=== PATIENT | female | born 1945 | race American Indian/Alaskan Native ===

== ENCOUNTER 2018-05-31 08:19 | Emergency (ER) | payer OTHER ==
[2018-05-31] MEDS ORDERED: MORPHINE IM ONE (08:44)
[2018-05-31] MEDS ORDERED: ZOFRAN IM ONE (08:44)
--- NOTE | 2018-05-31 08:49 | Emergency Department Report ---
ED Fall HPI - General Chief Complaint: Extremity Injury, Lower Stated Complaint: BILATERAL KNEE PAIN/FALL STANDING Time Seen by Provider: 05/31/18 08:38 Source: EMS Mode of arrival: Stretcher - History of Present Illness Initial Comments: Patient is 73 years old female with history of hypertension. Patient brought to the emergency room via EMS for evaluation of a fall that happened yesterday evening. Patient stated that she was pushed by her dog and fell on both knees. Patient is complaining of bilateral knee pain and swelling and left ankle and foot pain. Patient denied any head injury, neck injury, chest injury, abdominal injury or other extremities injury. Patient denied any loss of consciousness, headache, weakness, numbness or tingling sensation. No bowel or bladder incontinence. Patient denied any symptoms prior to the fall. MD Complaint: fall -: Last night Fall From: standing When Fall Occurred: 24 hours [employer] Fall Witnessed: yes, by family Place Fall Occurred: home Loss of Consciousness: none Prolonged Down Time?: no Symptoms Prior to Fall: none Location - Extremities: Left: Knee, Ankle, Foot, Right: Knee Severity: moderate Severity scale (0 -10): 6 Associated Symptoms: denies ED Review of Systems ROS: Stated complaint: BILATERAL KNEE PAIN/FALL STANDING Other details as noted in HPI Comment: All other systems reviewed and negative Constitutional: denies: chills, fever Respiratory: denies: cough, orthopnea, shortness of breath, SOB with exertion Cardiovascular: denies: chest pain, palpitations Gastrointestinal: denies: abdominal pain, nausea, vomiting, diarrhea, constipation, hematemesis, melena, hematochezia Genitourinary: denies: dysuria Musculoskeletal: denies: back pain Neurological: denies: headache, weakness, numbness, paresthesias, confusion ED Past Medical Hx - Past Medical History Previous Medical History?: Yes Hx Hypertension: Yes Hx Diabetes: Yes - Surgical History Past Surgical History?: No - Social History Smoking Status: Current Every Day Smoker Substance Use Type: None ED Physical Exam - General Limitations: Physical Limitation General appearance: alert, in no apparent distress - Head Head exam: Present: atraumatic, normocephalic, normal inspection - Eye Eye exam: Present: normal appearance, PERRL - ENT ENT exam: Present: normal exam, normal orophraynx, mucous membranes moist - Neck Neck exam: Present: normal inspection, full ROM. Absent: tenderness, meningismus, lymphadenopathy, thyromegaly - Respiratory Respiratory exam: Present: normal lung sounds bilaterally - Cardiovascular Cardiovascular Exam: Present: regular rate, normal rhythm, normal heart sounds - GI/Abdominal GI/Abdominal exam: Present: soft, normal bowel sounds. Absent: distended, tenderness, guarding, rebound, rigid, organomegaly, mass, bruit, pulsatile mass - Expanded Lower Extremity Exam Right Hip exam: Present: normal inspection, full ROM. Absent: tenderness, swelling, abrasion Upper Leg exam: Present: normal inspection, full ROM. Absent: tenderness, swelling Knee exam: Present: normal inspection, full ROM, tenderness, swelling. Absent: abrasion, laceration, ecchymosis, deformity, crepidus, dislocation, erythema, effusion Lower Leg exam: Present: normal inspection, full ROM Ankle exam: Present: normal inspection, full ROM. Absent: tenderness, swelling Foot/Toe exam: Present: normal inspection, full ROM. Absent: tenderness, swelling, abrasion, laceration, dislocation Neuro vascular tendon exam: Present: no vascular compromise Left Hip exam: Present: normal inspection, full ROM. Absent: tenderness, swelling, abrasion Upper Leg exam: Present: normal inspection, full ROM. Absent: tenderness, swelling Knee exam: Present: tenderness, swelling. Absent: full ROM, abrasion, lacerati on, ecchymosis, deformity, crepidus, dislocation, erythema, effusion, pain w/ pronation/supination Lower Leg exam: Present: normal inspection, full ROM. Absent: tenderness, s welling, abrasion, deformity Ankle exam: Present: tenderness, swelling. Absent: abrasion, laceration, ecchymosis Foot/Toe exam: Present: tenderness, swelling. Absent: full ROM Neuro vascular tendon exam: Present: no vascular compromise - Back Exam Back exam: Present: normal inspection - Neurological Exam Neurological exam: Present: alert, oriented X3, CN II-XII intact - Skin Skin exam: Present: warm, intact, normal color ED Course Vital Signs 05/31/18 05/31/18 05/31/18 08:30 08:32 08:45 Temperature 99.1 F Pulse Rate 82 80 82 Respiratory 17 20 26 H Rate Blood Pressure 126/71 110/66 O2 Sat by Pulse 98 95 Oximetry 05/31/18 05/31/18 05/31/18 09:00 09:15 09:30 Temperature Pulse Rate 81 79 85 Respiratory 21 21 20 Rate Blood Pressure 124/73 122/69 111/75 O2 Sat by Pulse 96 96 95 Oximetry ED Medical Decision Making - Radiology Data Radiology results: report reviewed X-ray of both knees, left ankle and left foot are all negative for acute finding. - Medical Decision Making Patient is 73 years old female with history of hypertension. Patient brought to the emergency room via EMS for evaluation of a fall that happened yesterday evening. Patient stated that she was pushed by her dog and fell on both knees. Patient is complaining of bilateral knee pain and swelling and left ankle and foot pain. Patient denied any head injury, neck injury, chest injury, abdominal injury or other extremities injury. Patient denied any loss of consciousness, headache, weakness, numbness or tingling sensation. No bowel or bladder incontinence. Patient denied any symptoms prior to the fall. Patient x-ray is reviewed and is negative for acute finding. Patient stated that she is feeling much better. I advised the patient to follow up with her primary care physician in the next 2-3 days and to return to the ER if symptoms not improved. Critical care attestation.: If time is entered above; I have spent that time in minutes in the direct care of this critically ill patient, excluding procedure time. ED Disposition Clinical Impression: Fall, Contusion Disposition: -01 TO HOME OR SELFCARE Is pt being admited?: No Condition: Stable Instructions: Contusion in Adults (ED), Fall Prevention for Older Adults (ED) Referrals: PRIMARY CARE, [Primary Care Provider] - 3-5 Days
--- NOTE | 2018-05-31 09:51 | XRay Report ---
EXAM: XR KNEE BILAT 3V HISTORY: injury TECHNIQUE: 6 views COMPARISON: None available. FINDINGS: RIGHT KNEE: Diffuse osteopenia. There is no acute bony fracture, or joint subluxation or dislocation seen. No focal bone erosion or sclerosis is seen. There is tricompartment osteoarthritis of the knee (especially severe in the medial joint compartment ), marked by joint space narrowings and prominent marginal osteophytosis. No evidence for inflammator y arthritis is seen. There is a suprapatellar soft tissue density reminiscent of a gross joint effusion seen. There is sev ere SFA, popliteal artery, and trifurcation runoff vessel atherosclerosis. No radiodense soft tissue mass or foreign body is seen. LEFT KNEE: Diffuse osteopenia. There is no acute bony fracture, or joint subluxation or dislocation s een. No focal bone erosion or sclerosis is seen. There is tricompartment osteoarthritis of the knee (especially severe in the medial joint compartment ), marked by joint space narrowings and prominent marginal osteophytosis. No evidence for inflammator y arthritis is seen. There is a suprapatellar soft tissue density reminiscent of a gross joint effusion seen. There is sev ere SFA, popliteal artery, and trifurcation runoff vessel atherosclerosis. No radiodense soft tissue mass or foreign body is seen. IMPRESSION: 1. No acute bony fracture, or joint subluxation or dislocation seen. 2. Moderate to severe bilateral tricompartment osteoarthritis, especially the medial joint compartme nts and patellofemoral joints. 3. Large bilateral joint effusions with distention of the suprapatellar bursae. 4. Severe peripheral atherosclerosis. This document is electronically signed by Celia Vogel MD., May 31 2018 09:49:00 AM ET
--- NOTE | 2018-05-31 09:53 | XRay Report ---
EXAM: XR ANKLE 3+V LT HISTORY: injury/FALL TECHNIQUE: 3 views COMPARISON: None available. FINDINGS: There is no acute bony fracture, or joint subluxation or dislocation seen. No evidence for inflammato ry or degenerative arthritis is seen. No focal bone erosion or sclerosis is seen. There is a small, a pproximately 7.8 mm, Achilles calcaneal bone spur in keeping with sequela of enthesopathy. There is peripheral atherosclerosis. Soft tissue swelling is seen around the ankle. No soft tissue em physema, radiodense soft tissue mass or foreign body is seen. IMPRESSION: 1. No acute bony fracture, or joint subluxation or dislocation seen. 2. Soft tissue swelling around the ankle. 3. No soft tissue emphysema, radiodense soft tissue mass or foreign body seen. 4. Consider follow-up evaluation with sectional imaging (CT and/or MRI) if symptoms persist or worse n. This document is electronically signed by Celia Vogel MD., May 31 2018 09:51:19 AM SH[facility]
--- NOTE | 2018-05-31 10:11 | XRay Report ---
EXAM: XR FOOT 3+V LT HISTORY: injury TECHNIQUE: 3 views COMPARISON: None available. FINDINGS: There is diffuse osteopenia. There is no acute bony fracture, or joint subluxation or dislocation see n. No evidence for inflammatory or degenerative arthritis is seen. No focal bone erosion or sclerosis is seen. No plantar or Achilles calcaneal bone spurs seen. No soft tissue emphysema, radiodense soft tissue abnormality or foreign body is seen. IMPRESSION: 1. No acute bony fracture, or joint subluxation or dislocation seen. 2. No soft tissue emphysema, radiodense soft tissue abnormality or foreign body seen. This document is electronically signed by Celia Vogel MD., May 31 2018 10:09:15 AM ET
[2018-05-31 11:12] VITALS: BP 93/54
== END 2018-05-31 10:40 | disposition home or self-care (01) ==
LOC: ED 08:19
DX: S80.02XA Contusion of left knee, initial encounter (principal); S80.01XA Contusion of right knee, initial encounter; S90.02XA Contusion of left ankle, initial encounter; I10 Essential (primary) hypertension; E11.9 Type 2 diabetes mellitus without complications; F17.200 Nicotine dependence, unspecified, uncomplicated; W20.8XXA Other cause of strike by thrown, projected or falling object, initial encounter; Y93.89 Activity, other specified; Y92.89 Other specified places as the place of occurrence of the external cause; Y99.8 Other external cause status
CPT/HCPCS: 73562; 73610; 73630; 96372; 99283; J2270; J2405

== ENCOUNTER 2021-08-04 13:53 | Inpatient (IN) | payer MEDICARE, OTHER ==
[2021-08-04 14:39] LABS: ABG Base Excess -6.1 mmol/L (-2.0-3.0); ABG HCO3 20.4 mmol/L (20.0-26.0); ABG Methemoglobin 0.5 % (0.0-1.5); ABG PCO2 44.7 mm Hg; ABG PH 7.277 pH Units (7.350-7.450); ABG PO2 178.4 mm Hg (80.0-90.0)
--- NOTE | 2021-08-04 15:01 | Emergency Department Report ---
ED General Adult HPI - General Chief complaint: Dyspnea/Respdistress Stated complaint: RESP ARREST Time Seen by Provider: 08/04/21 14:07 Source: EMS Mode of arrival: Stretcher Limitations: Other - History of Present Illness Initial comments: Patient presents with shortness of breath that occurred today. Patient was stating that she had some difficulty breathing and then went unresponsive. History is limited due to acuity of patient's condition. 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 She has a history of atrial fibrillation she does not smoke. - Related Data Previous Rx's Medication Instructions Recorded Last Taken Type Ondansetron [Zofran Odt] 4 mg PO Q8HR PRN #14 tab.rapdis 05/31/18 Unknown Rx traMADoL [Ultram 50 MG tab] 50 mg PO Q4HR PRN #14 tablet 05/31/18 Unknown Rx Allergies Allergy/AdvReac Type Severity Reaction Status Date / Time No Known Allergies Allergy Verified 08/04/21 19:45 ED Review of Systems ROS: Stated complaint: RESP ARREST Other details as noted in HPI Constitutional: denies: chills, fever Eyes: denies: eye pain, eye discharge, vision change ENT: denies: ear pain, throat pain Respiratory: shortness of breath. denies: cough, wheezing Cardiovascular: denies: chest pain, palpitations Endocrine: no symptoms reported Gastrointestinal: denies: abdominal pain, nausea, diarrhea Genitourinary: denies: urgency, dysuria, discharge Musculoskeletal: denies: back pain, joint swelling, arthralgia Skin: denies: rash, lesions Neurological: denies: headache, weakness, paresthesias Psychiatric: denies: anxiety, depression Hematological/Lymphatic: denies: easy bleeding, easy bruising ED Past Medical Hx - Past Medical History Hx Hypertension: Yes Hx Diabetes: Yes - Social History Smoking Status: Former Smoker Substance Use Type: None - Medications Home Medications: Home Medications Medication Instructions Recorded Confirmed Last Taken Type Ondansetron [Zofran Odt] 4 mg PO Q8HR PRN #14 tab.rapdis 05/31/18 Unknown Rx traMADoL [Ultram 50 MG tab] 50 mg PO Q4HR PRN #14 tablet 05/31/18 Unknown Rx ED Physical Exam - General Limitations: Other General appearance: alert, in no apparent distress - Head Head exam: Present: atraumatic, normocephalic - Eye Eye exam: Present: normal appearance - ENT ENT exam: Present: mucous membranes moist - Neck Neck exam: Present: normal inspection - Respiratory Respiratory exam: Present: normal lung sounds bilaterally. Absent: respiratory distress - Cardiovascular Cardiovascular Exam: Present: regular rate, normal rhythm. Absent: systolic murmur, diastolic murmur, rubs, gallop - GI/Abdominal GI/Abdominal exam: Present: soft, normal bowel sounds - Extremities Exam Extremities exam: Present: normal inspection - Back Exam Back exam: Present: normal inspection - Neurological Exam Neurological exam: Present: alert, oriented X3 - Psychiatric Psychiatric exam: Present: normal affect, normal mood - Skin Skin exam: Present: warm, dry, intact, normal color. Absent: rash ED Course Vital Signs 08/04/21 08/04/21 08/04/21 14:05 16:17 18:42 Pulse Rate 99 H 80 Respiratory 38 H 28 H Rate Blood Pressure 122/82 [Left] O2 Sat by Pulse 86 100 100 Oximetry ED Medical Decision Making - Lab Data Result diagrams: 08/04/21 14:35 08/04/21 14:35 Lab Results 08/04/21 08/04/21 08/04/21 Range/Units 14:15 14:35 14:35 WBC 5.0 (4.5-11.0) K/mm3 RBC 4.61 (3.65-5.03) M/mm3 Hgb 10.5 (10.1-14.3) gm/dl Hct 33.9 (30.3-42.9) % MCV 74 L (79-97) fl MCH 23 L (28-32) pg MCHC 31 (30-34) % RDW 15.4 H (13.2-15.2) % Plt Count 180 (140-440) K/mm3 Lymph % (Auto) 16.0 (13.4-35.0) % Sanborn % (Auto) 4.4 (0.0-7.3) % Eos % (Auto) 0.1 (0.0-4.3) % Baso % (Auto) 0.5 (0.0-1.8) % Lymph # (Auto) 0.8 L (1.2-5.4) K/mm3 Sanborn # (Auto) 0.2 (0.0-0.8) K/mm3 Eos # (Auto) 0.0 (0.0-0.4) K/mm3 Baso # (Auto) 0.0 (0.0-0.1) K/mm3 Seg Neutrophils % 79.0 H (40.0-70.0) % Seg Neutrophils # 4.0 (1.8-7.7) K/mm3 ABG pH 7.277 L (7.350-7.450) pH Units ABG pCO2 44.7 mm Hg ABG pO2 178.4 H (80.0-90.0) mm Hg ABG HCO3 20.4 (20.0-26.0) mmol/L ABG O2 Saturation 99.0 (95.0-99.0) % ABG O2 Content 15.2 (0.0-44) ABG Base Excess -6.1 L (-2.0-3.0) mmol/L ABG Hemoglobin 10.9 L (12.0-16.0) gm/dl ABG Carboxyhemoglobin 1.6 (0.0-5.0) % ABG Methemoglobin 0.5 (0.0-1.5) % Oxyhemoglobin 97.0 (95.0-99.0) % FiO2 60 % Sodium 136 L (137-145) mmol/L Potassium 4.3 (3.6-5.0) mmol/L Chloride 99.7 (98-107) mmol/L Carbon Dioxide 18 L (22-30) mmol/L Anion Gap 23 mmol/L BUN 12 (7-17) mg/dL Creatinine 0.7 (0.6-1.2) mg/dL Estimated GFR > 60 ml/min BUN/Creatinine Ratio 17 % Glucose 523 H* (65-100) mg/dL Calcium 9.6 (8.4-10.2) mg/dL Total Bilirubin 0.40 (0.1-1.2) mg/dL AST 225 H (5-40) units/L ALT 110 H (7-56) units/L Alkaline Phosphatase 101 (35-129) units/L Troponin T (0.00-0.029) ng/mL NT-Pro-B Natriuret Pep (0-900) pg/mL Total Protein 6.9 (6.3-8.2) g/dL Albumin 4.1 (3.9-5) g/dL Albumin/Globulin Ratio 1.5 % 08/04/21 Range/Units 14:35 WBC (4.5-11.0) K/mm3 RBC (3.65-5.03) M/mm3 Hgb (10.1-14.3) gm/dl Hct (30.3-42.9) % MCV (79-97) fl MCH (28-32) pg MCHC (30-34) % RDW (13.2-15.2) % Plt Count (140-440) K/mm3 Lymph % (Auto) (13.4-35.0) % Sanborn % (Auto) (0.0-7.3) % Eos % (Auto) (0.0-4.3) % Baso % (Auto) (0.0-1.8) % Lymph # (Auto) (1.2-5.4) K/mm3 Sanborn # (Auto) (0.0-0.8) K/mm3 Eos # (Auto) (0.0-0.4) K/mm3 Baso # (Auto) (0.0-0.1) K/mm3 Seg Neutrophils % (40.0-70.0) % Seg Neutrophils # (1.8-7.7) K/mm3 ABG pH (7.350-7.450) pH Units ABG pCO2 mm Hg ABG pO2 (80.0-90.0) mm Hg ABG HCO3 (20.0-26.0) mmol/L ABG O2 Saturation (95.0-99.0) % ABG O2 Content (0.0-44) ABG Base Excess (-2.0-3.0) mmol/L ABG Hemoglobin (12.0-16.0) gm/dl ABG Carboxyhemoglobin (0.0-5.0) % ABG Methemoglobin (0.0-1.5) % Oxyhemoglobin (95.0-99.0) % FiO2 % Sodium (137-145) mmol/L Potassium (3.6-5.0) mmol/L Chloride (98-107) mmol/L Carbon Dioxide (22-30) mmol/L Anion Gap mmol/L BUN (7-17) mg/dL Creatinine (0.6-1.2) mg/dL Estimated GFR ml/min BUN/Creatinine Ratio % Glucose (65-100) mg/dL Calcium (8.4-10.2) mg/dL Total Bilirubin (0.1-1.2) mg/dL AST (5-40) units/L ALT (7-56) units/L Alkaline Phosphatase (35-129) units/L Troponin T < 0.010 (0.00-0.029) ng/mL NT-Pro-B Natriuret Pep 3670 H (0-900) pg/mL Total Protein (6.3-8.2) g/dL Albumin (3.9-5) g/dL Albumin/Globulin Ratio % - Medical Decision Making Chief medical diagnosis congestive heart failure Differential medical diagnosis pulmonary edema, acute respiratory failure, pneumonia I will give IV Lasix I will place the patient on BiPAP I will get CBC BMP EKG and I will admit the patient to the hospital. Critical Care Time: Yes Critical care time in (mins) excluding proc time.: 120 Critical care attestation.: If time is entered above; I have spent that time in minutes in the direct care of this critically ill patient, excluding procedure time. ED Disposition Clinical Impression: CHF (congestive heart failure), NYHA class III Qualifiers: Congestive heart failure type: combined Congestive heart failure chronicity: unspecified Qualified Code(s): I50.40 - Unspecified combined systolic (congestive) and diastolic (congestive) heart failure Acute respiratory failure Qualifiers: Respiratory failure complication: unspecified whether with hypoxia or hypercapnia Qualified Code(s): J96.00 - Acute respiratory failure, unspecified whether with hypoxia or hypercapnia Disposition: ADMITTED INPATIENT Is pt being admited?: Yes Does the pt Need Aspirin: No Condition: Stable
[2021-08-04 15:06] LABS: Basophils % (Auto) 0.5 % (0.0-1.8); Eosinophils % (Auto) 0.1 % (0.0-4.3); Hematocrit 33.9 % (30.3-42.9); Hemoglobin 10.5 gm/dl (10.1-14.3); Lymphocytes # (Auto) 0.8 K/mm3 (1.2-5.4); Mean Corpuscular HGB Conc 31 % (30-34); Mean Corpuscular Volume 74 fl (79-97); Monocytes # (Auto) 0.2 K/mm3 (0.0-0.8); Monocytes % (Auto) 4.4 % (0.0-7.3); Platelet Count 180 K/mm3 (140-440); Red Blood Count 4.61 M/mm3 (3.65-5.03); Red Cell Distribution Width 15.4 % (13.2-15.2)
[2021-08-04 15:18] LABS: Alanine Aminotransferase 110 units/L (7-56); Albumin 4.1 g/dL (3.9-5); Blood Urea Nitrogen 12 mg/dL (7-17); Calcium 9.6 mg/dL (8.4-10.2); Hemolysis Index 4
[2021-08-04 15:49] LABS: BUN/Creatinine Ratio 17
[2021-08-04] MEDS ORDERED: FUROSEMIDE 40 MG/4 ML INJ IV ONE (17:29)
--- NOTE | 2021-08-04 18:12 | XRay Report ---
CHEST 1 VIEW 08/04/2021 5:52 PM INDICATION / CLINICAL INFORMATION: sob. COMPARISON: None available. FINDINGS: SUPPORT DEVICES: None. HEART / MEDIASTINUM: No significant abnormality. LUNGS / PLEURA: Mild increased pulmonary vascularity with mild interstitial prominence within the hazel gs No pneumothorax. Signer Name: Ramírez Major MD Signed: 08/04/2021 6:07 PM Workstation Name: [id number]
[2021-08-04] MEDS ORDERED: ALBUTEROL 2.5 MG/3 ML NEBU IH PRN (19:37)
[2021-08-04] MEDS ORDERED: DEXTROSE 50% IN WATER (25GM) 50 ML SYRINGE IV PRN (19:37)
[2021-08-04] MEDS ORDERED: ACETAMINOPHEN 325 MG TAB PO PRN (19:37)
[2021-08-04] MEDS ORDERED: ONDANSETRON 4 MG/2 ML INJ IV PRN (19:37)
[2021-08-04] MEDS ORDERED: MORPHINE 2 MG/1 ML INJ IV PRN (19:37)
[2021-08-04] MEDS ORDERED: MORPHINE 4 MG/1 ML INJ IV PRN (19:37)
--- NOTE | 2021-08-04 19:53 | History and Physical Report ---
History of Present Illness Date of examination: 08/04/21 Date of admission: 08/04/21 Chief complaint: Dyspnea Respiratory distress History of present illness: 76 years old female with history of high blood duration, diabetes and A. stephanie was brought to the emergency room because of shortness of breath that occurred today. Patient was stating that she had some difficulty breathing and then went unresponsive. History is limited due to acuity of patient's condition. 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 She has a history of atrial fibrillation she does not smoke. In the emergency room patient BNP is 3670, troponin 0.010. Chest x-ray compatible with CHF and glucose is 523. We are going to admit the patient we will put the patient on CHF pathway, BiPAP and consult cardiology for evaluation Past History Past Medical History: atrial fib, diabetes, hypertension Past Surgical History: No surgical history Social history: smoking Family history: hypertension Medications and Allergies Allergies Allergy/AdvReac Type Severity Reaction Status Date / Time No Known Allergies Allergy Verified 08/04/21 19:45 Home Medications Medication Instructions Recorded Confirmed Last Taken Type Ondansetron [Zofran Odt] 4 mg PO Q8HR PRN #14 tab.rapdis 05/31/18 Unknown Rx traMADoL [Ultram 50 MG tab] 50 mg PO Q4HR PRN #14 tablet 05/31/18 Unknown Rx Active Meds: Active Medications Acetaminophen (Acetaminophen 325 Mg Tab) 650 mg PO Q4H PRN PRN Reason: Pain MILD(1-3)/Fever >100.5/MAS Albuterol (Albuterol 2.5 Mg/3 Ml Nebu) 2.5 mg IH Q3HRT PRN PRN Reason: Shortness Of Breath Albuterol/Ipratropium (Ipratropium/Albuterol Sulfate 3 Ml Ampul.Neb) 1 ampul IH Q6HRT PETERSON Dextrose (Dextrose 50% In Water (25gm) 50 Ml Syringe) 50 ml IV Q30MIN PRN; Protocol PRN Reason: Hypoglycemia Famotidine (Famotidine 20 Mg Tab) 20 mg PO BID PETERSON Furosemide (Furosemide 40 Mg/4 Ml Inj) 40 mg IV BID@0600,1800 PETERSON Heparin Sodium (Porcine) (Heparin 5,000 Unit/1 Ml Vial) 5,000 unit SUB-Q Q12HR PETERSON Insulin Human Lispro (Insulin Lispro 100 Unit/Ml) 0 unit SUB-Q Q6HR PETERSON; Protocol Morphine Sulfate (Morphine 2 Mg/1 Ml Inj) 2 mg IV Q4H PRN PRN Reason: Pain, Moderate (4-6) Morphine Sulfate (Morphine 4 Mg/1 Ml Inj) 4 mg IV Q4H PRN PRN Reason: Pain , Severe (7-10) Ondansetron HCl (Ondansetron 4 Mg/2 Ml Inj) 4 mg IV Q8H PRN PRN Reason: Nausea And Vomiting Sodium Chloride (Sodium Chloride 0.9% 10 Ml Flush Syringe) 10 ml IV BID PETERSON Sodium Chloride (Sodium Chloride 0.9% 10 Ml Flush Syringe) 10 ml IV PRN PRN PRN Reason: LINE FLUSH Review of Systems All systems: negative Cardiovascular: orthopnea, edema, shortness of breath, dyspnea on exertion, paroxysmal nocturnal dyspnea Respiratory: shortness of breath, dyspnea on exertion Exam - Constitutional Vitals: Temp Pulse Resp BP Pulse Ox 80 28 H 122/82 100 08/04/21 16:17 08/04/21 16:17 08/04/21 18:42 08/04/21 18:42 General appearance: Present: no acute distress, well-nourished - EENT Eyes: Present: PERRL ENT: hearing intact, clear oral mucosa - Neck Neck: Present: supple, normal ROM - Respiratory Respiratory effort: normal Respiratory: bilateral: rales - Cardiovascular Heart Sounds: Present: S1 & S2. Absent: rub, click - Extremities Extremities: pulses symmetrical, No edema Peripheral Pulses: within normal limits - Abdominal General gastrointestinal: Present: soft, non-tender, non-distended, normal bowel sounds Female genitourinary: Present: normal - Integumentary Integumentary: Present: clear, warm, dry - Musculoskeletal Musculoskeletal: gait normal, strength equal bilaterally - Psychiatric Psychiatric: appropriate mood/affect, intact judgment & insight - Neurologic Neurologic: CNII-XII intact, moves all extremities HEART Score - HEART Score Troponin: Troponin T < 0.010 ng/mL (0.00-0.029) 08/04/21 14:35 Results - Labs CBC & Chem 7: 08/04/21 14:35 08/04/21 14:35 Labs: Laboratory Last Values WBC 5.0 K/mm3 (4.5-11.0) 08/04/21 14:35 RBC 4.61 M/mm3 (3.65-5.03) 08/04/21 14:35 Hgb 10.5 gm/dl (10.1-14.3) 08/04/21 14:35 Hct 33.9 % (30.3-42.9) 08/04/21 14:35 MCV 74 fl (79-97) L 08/04/21 14:35 MCH 23 pg (28-32) L 08/04/21 14:35 MCHC 31 % (30-34) 08/04/21 14:35 RDW 15.4 % (13.2-15.2) H 08/04/21 14:35 Plt Count 180 K/mm3 (140-440) 08/04/21 14:35 Lymph % (Auto) 16.0 % (13.4-35.0) 08/04/21 14:35 [place] % (Auto) 4.4 % (0.0-7.3) 08/04/21 14:35 Eos % (Auto) 0.1 % (0.0-4.3) 08/04/21 14:35 Baso % (Auto) 0.5 % (0.0-1.8) 08/04/21 14:35 Lymph # (Auto) 0.8 K/mm3 (1.2-5.4) L 08/04/21 14:35 [place] # (Auto) 0.2 K/mm3 (0.0-0.8) 08/04/21 14:35 Eos # (Auto) 0.0 K/mm3 (0.0-0.4) 08/04/21 14:35 Baso # (Auto) 0.0 K/mm3 (0.0-0.1) 08/04/21 14:35 Seg Neutrophils % 79.0 % (40.0-70.0) H 08/04/21 14:35 Seg Neutrophils # 4.0 K/mm3 (1.8-7.7) 08/04/21 14:35 ABG pH 7.277 pH Units (7.350-7.450) L 08/04/21 14:15 ABG pCO2 44.7 mm Hg 08/04/21 14:15 ABG pO2 178.4 mm Hg (80.0-90.0) H 08/04/21 14:15 ABG HCO3 20.4 mmol/L (20.0-26.0) 08/04/21 14:15 ABG O2 Saturation 99.0 % (95.0-99.0) 08/04/21 14:15 ABG O2 Content 15.2 (0.0-44) 08/04/21 14:15 ABG Base Excess -6.1 mmol/L (-2.0-3.0) L 08/04/21 14:15 ABG Hemoglobin 10.9 gm/dl (12.0-16.0) L 08/04/21 14:15 ABG Carboxyhemoglobin 1.6 % (0.0-5.0) 08/04/21 14:15 ABG Methemoglobin 0.5 % (0.0-1.5) 08/04/21 14:15 Oxyhemoglobin 97.0 % (95.0-99.0) 08/04/21 14:15 FiO2 60 % 08/04/21 14:15 Sodium 136 mmol/L (137-145) L 08/04/21 14:35 Potassium 4.3 mmol/L (3.6-5.0) 08/04/21 14:35 Chloride 99.7 mmol/L (98-107) 08/04/21 14:35 Carbon Dioxide 18 mmol/L (22-30) L 08/04/21 14:35 Anion Gap 23 mmol/L 08/04/21 14:35 BUN 12 mg/dL (7-17) 08/04/21 14:35 Creatinine 0.7 mg/dL (0.6-1.2) 08/04/21 14:35 Estimated GFR > 60 ml/min 08/04/21 14:35 BUN/Creatinine Ratio 17 % 08/04/21 14:35 Glucose 523 mg/dL (65-100) H* 08/04/21 14:35 Calcium 9.6 mg/dL (8.4-10.2) 08/04/21 14:35 Total Bilirubin 0.40 mg/dL (0.1-1.2) 08/04/21 14:35 AST 225 units/L (5-40) H 08/04/21 14:35 ALT 110 units/L (7-56) H 08/04/21 14:35 Alkaline Phosphatase 101 units/L (35-129) 08/04/21 14:35 Troponin T < 0.010 ng/mL (0.00-0.029) 08/04/21 14:35 NT-Pro-B Natriuret Pep 3670 pg/mL (0-900) H 08/04/21 14:35 Total Protein 6.9 g/dL (6.3-8.2) 08/04/21 14:35 Albumin 4.1 g/dL (3.9-5) 08/04/21 14:35 Albumin/Globulin Ratio 1.5 % 08/04/21 14:35 - Imaging and Cardiology Chest x-ray: report reviewed Assessment and Plan VTE prophylaxis?: Chemical Plan of care discussed with patient/family: Yes - Patient Problems (1) Acute exacerbation of CHF (congestive heart failure) Current Visit: Yes Status: Acute Plan to address problem: Admit the patient to the medical telemetry. Patient is on BiPAP. Lasix 40 mg IV every 12 hours. We will do the serial cardiac enzymes. Echocardiogram, fluid restriction. Maintain input output. Cardiology evaluation (2) Diabetes Current Visit: Yes Status: Acute Plan to address problem: Accu-Chek every 6 hours with Humalog high-dose coverage as. Diabetic education (3) Hypertension Current Visit: Yes Status: Acute Plan to address problem: Hydralazine 10 mg IV every 6 hours as needed. We will continue the home medication (4) A-fib Current Visit: Yes Status: Acute Plan to address problem: Stable. We will continue the home medication. Echocardiogram. Cardiology evaluation (5) Tobacco abuse Current Visit: Yes Status: Acute Plan to address problem: Patient is a former tobacco user. We counseled regarding quitting smoking (6) DVT prophylaxis Current Visit: Yes Status: Acute Plan to address problem: Heparin 5000 units subcu every 12 hours for DVT prophylaxis. Pepcid 20 mg p.o. twice daily for GI prophylaxis. Patient is a full code
[2021-08-04] MEDS ORDERED: hydrALAZINE 20 MG/1 ML INJ IV PRN (19:54)
[2021-08-04] MEDS: IPRATROPIUM/ALBUTEROL SULFATE 3 ML AMPUL.NEB IH SCH (21:26)
[2021-08-04] MEDS: HEPARIN 5,000 UNIT/1 ML VIAL SUB-Q SCH (21:30)
[2021-08-04] MEDS: FAMOTIDINE 20 MG TAB PO SCH (21:30)
[2021-08-05] MEDS: IPRATROPIUM/ALBUTEROL SULFATE 3 ML AMPUL.NEB IH SCH ×4 (02:18→21:12)
[2021-08-05] MEDS: INSULIN LISPRO 100 UNIT/ML SUB-Q SCH ×4 (04:34→22:03)
[2021-08-05] MEDS: FUROSEMIDE 40 MG/4 ML INJ IV SCH ×2 (05:41→17:56)
[2021-08-05 06:21] LABS: Basophils # (Auto) 0.1 K/mm3 (0.0-0.1); Basophils % (Auto) 0.8 % (0.0-1.8); Eosinophils # (Auto) 0.1 K/mm3 (0.0-0.4); Eosinophils % (Auto) 1.3 % (0.0-4.3); Hematocrit 32.1 % (30.3-42.9); Lymphocytes % (Auto) 45.5 % (13.4-35.0); Mean Corpuscular HGB Conc 31 % (30-34); Mean Corpuscular Volume 72 fl (79-97); Monocytes # (Auto) 0.5 K/mm3 (0.0-0.8); Monocytes % (Auto) 8.2 % (0.0-7.3); Platelet Count 181 K/mm3 (140-440); Red Blood Count 4.44 M/mm3 (3.65-5.03)
[2021-08-05 07:05] LABS: Blood Urea Nitrogen 14 mg/dL (7-17); Calcium 9.6 mg/dL (8.4-10.2); Hemolysis Index 1
[2021-08-05 07:08] LABS: BUN/Creatinine Ratio 20
--- NOTE | 2021-08-05 09:23 | Progress Note ---
Assessment and Plan Assessment and plan: VTE prophylaxis?: Chemical Plan of care discussed with patient/family: Yes - Patient Problems --Acute hypoxic respiratory failure; present on admission Requiring BiPAP, wean as tolerated Oxygen titrate O2 sats more than 90% Treat underlying congestive heart failure diuretics Nebulizers if needed - Acute exacerbation of systolic CHF (congestive heart failure) Admit the patient to the medical telemetry. Patient is on BiPAP. Lasix 40 mg IV every 12 hours. We will do the serial cardiac enzymes. Echocardiogram, fluid restriction. Maintain input output. Cardiology evaluation LVEF; 40 to 45% -- Diabetes melitis/uncontrolled Accu-Chek every 6 hours with Humalog high-dose coverage as. Sliding scale coverage, glipizide added Closely monitor,Diabetic education -- Hypertension Hydralazine 10 mg IV every 6 hours as needed. We will continue the home medication --Paroxysmal A-fib rate controlled Stable. We will continue the home medication. Echocardiogram. Cardiology evaluation On beta-blockers and chronic anticoagulant Eliquis Cardiology following -- Tobacco abuse Patient is a former tobacco user. We counseled regarding quitting smoking --Obesity; BMI 35.6; Diet modification, lifestyle changes, exercise as tolerated And weight reduction when medically stable --Full CODE STATUS --DVT prophylaxis Heparin 5000 units subcu every 12 hours for DVT prophylaxis. Pepcid 20 mg p.o. twice daily for GI prophylaxis. Patient is a full code Closely monitor the patient and adjust management as needed Cardiology consult and recommendations noted and appreciated Discharge planning per case management when patient is stable History Interval history: I have seen and examined the patient at the bedside Patient's chart and medications reviewed Patient was admitted with acute hypoxic respiratory failure requiring BiPAP Patient's feels slightly better Patient is morbidly obese Vital signs noted Hospitalist Physical - Constitutional Vitals: Temp Pulse Resp BP Pulse Ox 98.9 F 76 16 128/57 98 08/05/21 05:42 08/05/21 08:57 08/05/21 08:57 08/05/21 05:42 08/05/21 08:58 General appearance: Present: no acute distress, well-nourished, obese (Morbidly obese) - EENT Eyes: Present: PERRL, EOM intact - Neck Neck: Present: supple, normal ROM - Respiratory Respiratory effort: normal Respiratory: bilateral: diminished, negative: rales, rhonchi, wheezing - Cardiovascular Rhythm: regular Heart Sounds: Present: S1 & S2 - Extremities Extremities: no ischemia, No edema - Abdominal General gastrointestinal: soft, non-tender, non-distended, normal bowel sounds - Integumentary Integumentary: Present: clear, warm - Psychiatric Psychiatric: appropriate mood/affect, cooperative - Neurologic Neurologic: moves all extremities HEART Score - HEART Score Troponin: Troponin T < 0.010 ng/mL (0.00-0.029) 08/04/21 14:35 Results - Labs CBC & Chem 7: 08/05/21 16:38 08/05/21 16:38 Labs: Laboratory Last Values WBC 6.6 K/mm3 (4.5-11.0) 08/05/21 05:35 RBC 4.44 M/mm3 (3.65-5.03) 08/05/21 05:35 Hgb 10.0 gm/dl (10.1-14.3) L 08/05/21 05:35 Hct 32.1 % (30.3-42.9) 08/05/21 05:35 MCV 72 fl (79-97) L 08/05/21 05:35 MCH 23 pg (28-32) L 08/05/21 05:35 MCHC 31 % (30-34) 08/05/21 05:35 RDW 15.0 % (13.2-15.2) 08/05/21 05:35 Plt Count 181 K/mm3 (140-440) 08/05/21 05:35 Lymph % (Auto) 45.5 % (13.4-35.0) H 08/05/21 05:35 [place] % (Auto) 8.2 % (0.0-7.3) H 08/05/21 05:35 Eos % (Auto) 1.3 % (0.0-4.3) 08/05/21 05:35 Baso % (Auto) 0.8 % (0.0-1.8) 08/05/21 05:35 Lymph # (Auto) 3.0 K/mm3 (1.2-5.4) 08/05/21 05:35 [place] # (Auto) 0.5 K/mm3 (0.0-0.8) 08/05/21 05:35 Eos # (Auto) 0.1 K/mm3 (0.0-0.4) 08/05/21 05:35 Baso # (Auto) 0.1 K/mm3 (0.0-0.1) 08/05/21 05:35 Seg Neutrophils % 44.2 % (40.0-70.0) 08/05/21 05:35 Seg Neutrophils # 2.9 K/mm3 (1.8-7.7) 08/05/21 05:35 ABG pH 7.277 pH Units (7.350-7.450) L 08/04/21 14:15 ABG pCO2 44.7 mm Hg 08/04/21 14:15 ABG pO2 178.4 mm Hg (80.0-90.0) H 08/04/21 14:15 ABG HCO3 20.4 mmol/L (20.0-26.0) 08/04/21 14:15 ABG O2 Saturation 99.0 % (95.0-99.0) 08/04/21 14:15 ABG O2 Content 15.2 (0.0-44) 08/04/21 14:15 ABG Base Excess -6.1 mmol/L (-2.0-3.0) L 08/04/21 14:15 ABG Hemoglobin 10.9 gm/dl (12.0-16.0) L 08/04/21 14:15 ABG Carboxyhemoglobin 1.6 % (0.0-5.0) 08/04/21 14:15 ABG Methemoglobin 0.5 % (0.0-1.5) 08/04/21 14:15 Oxyhemoglobin 97.0 % (95.0-99.0) 08/04/21 14:15 FiO2 60 % 08/04/21 14:15 Sodium 140 mmol/L (137-145) 08/05/21 05:35 Potassium 3.9 mmol/L (3.6-5.0) 08/05/21 05:35 Chloride 100.1 mmol/L (98-107) 08/05/21 05:35 Carbon Dioxide 22 mmol/L (22-30) 08/05/21 05:35 Anion Gap 22 mmol/L 08/05/21 05:35 BUN 14 mg/dL (7-17) 08/05/21 05:35 Creatinine 0.7 mg/dL (0.6-1.2) 08/05/21 05:35 Estimated GFR > 60 ml/min 08/05/21 05:35 BUN/Creatinine Ratio 20 % 08/05/21 05:35 Glucose 411 mg/dL (65-100) H 08/05/21 05:35 POC Glucose 368 mg/dL (70-105) H 08/05/21 05:24 Calcium 9.6 mg/dL (8.4-10.2) 08/05/21 05:35 Total Bilirubin 0.40 mg/dL (0.1-1.2) 08/04/21 14:35 AST 225 units/L (5-40) H 08/04/21 14:35 ALT 110 units/L (7-56) H 08/04/21 14:35 Alkaline Phosphatase 101 units/L (35-129) 08/04/21 14:35 Troponin T < 0.010 ng/mL (0.00-0.029) 08/04/21 14:35 NT-Pro-B Natriuret Pep 3670 pg/mL (0-900) H 08/04/21 14:35 Total Protein 6.9 g/dL (6.3-8.2) 08/04/21 14:35 Albumin 4.1 g/dL (3.9-5) 08/04/21 14:35 Albumin/Globulin Ratio 1.5 % 08/04/21 14:35 Steward/IV: Voiding Method Toilet Active Medications - Current Medications Current Medications: Generic Name Dose Route Start Last Admin Trade Name Freq PRN Reason Stop Dose Admin Acetaminophen 650 mg 08/04/21 19:37 Acetaminophen 325 Mg Tab PO Q4H PRN Pain MILD(1-3)/Fever >100.5/MAS Albuterol 2.5 mg 08/04/21 19:37 Albuterol 2.5 Mg/3 Ml Nebu IH Q3HRT PRN Shortness Of Breath Albuterol/Ipratropium 1 ampul 08/04/21 20:00 08/05/21 08:56 Ipratropium/Albuterol Sulfate 3 Ml Ampul.Neb IH 1 ampul Q6HRT PETERSON Administration Dextrose 50 ml 08/04/21 19:37 Dextrose 50% In Water (25gm) 50 Ml Syringe IV Q30MIN PRN Hypoglycemia Protocol Famotidine 20 mg 08/04/21 22:00 08/04/21 21:30 Famotidine 20 Mg Tab PO 20 mg BID PETERSON Administration Furosemide 40 mg 08/05/21 06:00 08/05/21 05:41 Furosemide 40 Mg/4 Ml Inj IV 40 mg BID@0600,1800 PETERSON Administration Glipizide 10 mg 08/06/21 08:00 Glipizide Xl 10 Mg Tab PO QDDIAB PETERSON Glipizide 10 mg 08/05/21 09:20 Glipizide Xl 10 Mg Tab PO 08/05/21 09:21 ONCE ONE Heparin Sodium (Porcine) 5,000 unit 08/04/21 22:00 08/04/21 21:30 Heparin 5,000 Unit/1 Ml Vial SUB-Q 5,000 unit Q12HR PETERSON Administration Hydralazine HCl 10 mg 08/04/21 19:54 Hydralazine 20 Mg/1 Ml Inj IV Q6H PRN Blood Pressure Insulin Human Lispro 0 unit 08/05/21 00:00 08/05/21 05:32 Insulin Lispro 100 Unit/Ml SUB-Q 10 unit Q6HR PETERSON Administration Protocol Morphine Sulfate 2 mg 08/04/21 19:37 Morphine 2 Mg/1 Ml Inj IV Q4H PRN Pain, Moderate (4-6) Morphine Sulfate 4 mg 08/04/21 19:37 Morphine 4 Mg/1 Ml Inj IV Q4H PRN Pain , Severe (7-10) Ondansetron HCl 4 mg 08/04/21 19:37 Ondansetron 4 Mg/2 Ml Inj IV Q8H PRN Nausea And Vomiting Sodium Chloride 10 ml 08/04/21 22:00 08/04/21 21:30 Sodium Chloride 0.9% 10 Ml Flush Syringe IV 10 ml BID PETERSON Administration Sodium Chloride 10 ml 08/04/21 19:37 Sodium Chloride 0.9% 10 Ml Flush Syringe IV PRN PRN LINE FLUSH
[2021-08-05] MEDS: FAMOTIDINE 20 MG TAB PO SCH ×2 (10:13→21:58)
[2021-08-05] MEDS: HEPARIN 5,000 UNIT/1 ML VIAL SUB-Q SCH (10:13)
--- NOTE | 2021-08-05 10:50 | Electrocardiograph Report ---
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
--- NOTE | 2021-08-05 15:22 | Consultation ---
History of Present Illness Consult date: 08/05/21 Requesting physician: FAN CURRIE Consult reason: congestive heart failure History of present illness: The patient has a history of paroxysmal atrial fibrillation that was initially diagnosed after presenting to [facility] on 07/03/21. She was also treated for HF during that hospitalization. She claims that for the past few days, she has been experiencing progressively worsening shortness of breath. She claims that she u sed her COPD inhaler without improvement. On the day of presentation, the patient reportedly developed shortness of breath and subsequently lost consciousness. She does not recall the events other than arousing in the ambulance. According to the EMS, she was hypoxic upon initial contact. She denies chest pain, palpitations, or dizziness. CXR showed pulmonary vascular congestion. On telemetry, she has been demonstrating intermittent sinus rhythm with paroxysms of AF with RVR. She claims that her [employer] consultant, Dr. Yovany Shook performed a stress test on her last Friday. Result is pending. Echocardiogram of 07/04/21 revealed an ejection fraction of 40 45% with inferior and inferolateral WMA. Past History Past Medical History: atrial fib (PAF diagnosed 07/03/21.), arthritis, COPD, diabetes, heart failure, hypertension, other (JOANNE - she does not use CPAP; breast cancer, CVA.) Past Surgical History: No surgical history, hysterectomy, mastectomy (right lumpectomy), Other (ovarian cystectomy, left knee surgery) Social history: smoking (she's a former smoker) Family history: no significant family history Medications and Allergies Allergies Allergy/AdvReac Type Severity Reaction Status Date / Time No Known Allergies Allergy Verified 08/04/21 19:45 Home Medications Medication Instructions Recorded Confirmed Last Taken Type Cetirizine HCl [Zyrtec 10mg tab] 10 mg PO DAILY 08/05/21 08/05/21 08/03/21 History Meloxicam [Mobic] 15 mg PO QDAY 08/05/21 08/05/21 08/03/21 History Metformin HCl [metFORMIN] 1,000 mg PO BID 08/05/21 08/05/21 08/03/21 History Metoprolol Succinate [Kapspargo 25 mg PO DAILY 08/05/21 08/05/21 08/03/21 History Sprinkle] Rivaroxaban [Xarelto] 20 mg PO QDAY 08/05/21 08/05/21 08/03/21 History Rosuvastatin Calcium 10 mg PO DAILY 08/05/21 08/05/21 08/03/21 History amLODIPine [Norvasc] 10 mg PO DAILY 08/05/21 08/05/21 08/03/21 History glipiZIDE [Glucotrol] 10 mg PO QDAY 08/05/21 08/05/21 08/03/21 History Active Meds: Active Medications Acetaminophen (Acetaminophen 325 Mg Tab) 650 mg PO Q4H PRN PRN Reason: Pain MILD(1-3)/Fever >100.5/MAS Albuterol (Albuterol 2.5 Mg/3 Ml Nebu) 2.5 mg IH Q3HRT PRN PRN Reason: Shortness Of Breath Albuterol/Ipratropium (Ipratropium/Albuterol Sulfate 3 Ml Ampul.Neb) 1 ampul IH Q6HRT [facility] Last Admin: 08/05/21 14:50 Dose: 1 ampul Dextrose (Dextrose 50% In Water (25gm) 50 Ml Syringe) 50 ml IV Q30MIN PRN; Protocol PRN Reason: Hypoglycemia Famotidine (Famotidine 20 Mg Tab) 20 mg PO BID [facility] Last Admin: 08/05/21 10:13 Dose: 20 mg Furosemide (Furosemide 40 Mg/4 Ml Inj) 40 mg IV BID@0600,1800 [facility] Last Admin: 08/05/21 05:41 Dose: 40 mg Glipizide (Glipizide Xl 10 Mg Tab) 10 mg PO QDDIAB [facility] Heparin Sodium (Porcine) (Heparin 5,000 Unit/1 Ml Vial) 5,000 unit SUB-Q Q12HR [facility] Last Admin: 08/05/21 10:13 Dose: 5,000 unit Hydralazine HCl (Hydralazine 20 Mg/1 Ml Inj) 10 mg IV Q6H PRN PRN Reason: Blood Pressure Insulin Human Lispro (Insulin Lispro 100 Unit/Ml) 0 unit SUB-Q Q6HR [facility]; Protocol Last Admin: 08/05/21 05:32 Dose: 10 unit Morphine Sulfate (Morphine 2 Mg/1 Ml Inj) 2 mg IV Q4H PRN PRN Reason: Pain, Moderate (4-6) Morphine Sulfate (Morphine 4 Mg/1 Ml Inj) 4 mg IV Q4H PRN PRN Reason: Pain , Severe (7-10) Ondansetron HCl (Ondansetron 4 Mg/2 Ml Inj) 4 mg IV Q8H PRN PRN Reason: Nausea And Vomiting Sodium Chloride (Sodium Chloride 0.9% 10 Ml Flush Syringe) 10 ml IV BID [facility] Last Admin: 08/05/21 10:13 Dose: 10 ml Sodium Chloride (Sodium Chloride 0.9% 10 Ml Flush Syringe) 10 ml IV PRN PRN PRN Reason: LINE FLUSH Review of Systems Constitutional: no fever, no chills Ears, nose, mouth and throat: no ear pain, no ear discharge, no hoarseness Cardiovascular: orthopnea, syncope, shortness of breath, dyspnea on exertion, no chest pain, no leg edema Respiratory: shortness of breath, no cough, no hemoptysis Gastrointestinal: no abdominal pain, no nausea, no vomiting, no diarrhea, no constipation Genitourinary Female: no dysuria, no urinary frequency Rectal: no pain, no bleeding Musculoskeletal: no neck stiffness, no neck pain, no myalgias Integumentary: no rash, no pruritis Neurological: no weakness, no parathesias, no headaches Endocrine: no cold intolerance, no heat intolerance Hematologic/Lymphatic: no easy bruising, no easy bleeding Allergic/Immunologic: no urticaria Physical Examination Vital Signs Last Vital Signs Temp 98.9 F 08/05/21 05:42 Pulse 124 H 08/05/21 14:50 Resp 18 08/05/21 14:50 BP 128/57 08/05/21 05:42 Pulse Ox 98 08/05/21 08:58 General appearance: no acute distress HEENT: Positive: EOMI, Normocephaly, Mucus Membranes Moist Neck: Positive: neck supple, trachea midline, JVD/HJR Cardiac: Positive: Reg Rate and Rhythm, S1/S2 Lungs: Positive: clear to auscultation Neuro: Positive: Grossly Intact Abdomen: Positive: Soft, Active Bowel Sounds. Negative: Tender Musculoskeletal: Normal Range of Motion Extremities: Present: normal. Absent: edema Results 08/05/21 05:35 08/05/21 05:35 Cardiac Enzymes 08/04/21 Range/Units 14:35 AST 225 H (5-40) units/L CBC 08/05/21 Range/Units 05:35 WBC 6.6 (4.5-11.0) K/mm3 RBC 4.44 (3.65-5.03) M/mm3 Hgb 10.0 L (10.1-14.3) gm/dl Hct 32.1 (30.3-42.9) % Plt Count 181 (140-440) K/mm3 Lymph # (Auto) 3.0 (1.2-5.4) K/mm3 [place] # (Auto) 0.5 (0.0-0.8) K/mm3 Eos # (Auto) 0.1 (0.0-0.4) K/mm3 Baso # (Auto) 0.1 (0.0-0.1) K/mm3 Comprehensive Metabolic Panel 08/04/21 08/05/21 Range/Units 14:35 05:35 Sodium 136 L 140 (137-145) mmol/L Potassium 4.3 3.9 (3.6-5.0) mmol/L Chloride 99.7 100.1 (98-107) mmol/L Carbon Dioxide 18 L 22 (22-30) mmol/L BUN 12 14 (7-17) mg/dL Creatinine 0.7 0.7 (0.6-1.2) mg/dL Glucose 523 H* 411 H (65-100) mg/dL Calcium 9.6 9.6 (8.4-10.2) mg/dL AST 225 H (5-40) units/L ALT 110 H (7-56) units/L Alkaline Phosphatase 101 (35-129) units/L Total Protein 6.9 (6.3-8.2) g/dL Albumin 4.1 (3.9-5) g/dL - Imaging and Cardiology EKG: image reviewed EKG interpretations - Telemetry EKG Rhythm: Sinus Rhythm - EKG Sinus rhythms and dysrhythmias: sinus rhythm Supraventricular dysrhythmia: atrial premature complexe Repolarization changes or abnormalities: ST or T wave suggestive of ischemia Assessment and Plan Agree with current diuretic therapy. Initiate beta santi for control of AF. - Patient Problems (1) Acute HFrEF (heart failure with reduced ejection fraction) Current Visit: Yes Status: Acute (2) Paroxysmal atrial fibrillation with RVR Current Visit: Yes Status: Acute (3) COPD (chronic obstructive pulmonary disease) Current Visit: Yes Status: Chronic (4) JOANNE (obstructive sleep apnea) Current Visit: Yes Status: Chronic (5) Hypertension Current Visit: Yes Status: Chronic Qualifiers: Hypertension type: primary hypertension Qualified Code(s): I10 - Essential (primary) hypertension (6) Diabetes mellitus Current Visit: Yes Status: Chronic
[2021-08-05 16:57] LABS: Hematocrit 33.1 % (30.3-42.9); Hemoglobin 10.2 gm/dl (10.1-14.3); Mean Corpuscular HGB Conc 31 % (30-34); Mean Corpuscular Volume 72 fl (79-97); Platelet Count 184 K/mm3 (140-440); Red Blood Count 4.56 M/mm3 (3.65-5.03); Red Cell Distribution Width 14.9 % (13.2-15.2)
[2021-08-05 17:12] LABS: INR 0.95 (0.87-1.13)
[2021-08-05 17:13] LABS: Partial Thromboplastin Time 35.3 Sec. (24.2-36.6)
[2021-08-05] MEDS: METOPROLOL SUCCINATE XL 25 MG TAB PO SCH ×2 (17:38→22:00)
--- NOTE | 2021-08-05 18:37 | Progress Note ---
Assessment and Plan Assessment and plan: VTE prophylaxis?: Chemical Plan of care discussed with patient/family: Yes - Patient Problems --Acute hypoxic respiratory failure; present on admission Requiring BiPAP, wean as tolerated Oxygen titrate O2 sats more than 90% Treat underlying congestive heart failure diuretics Nebulizers if needed - Acute exacerbation of systolic CHF (congestive heart failure) Admit the patient to the medical telemetry. Patient is on BiPAP. Lasix 40 mg IV every 12 hours. We will do the serial cardiac enzymes. Echocardiogram, fluid restriction. Maintain input output. Cardiology evaluation LVEF; 40 to 45% -- Diabetes melitis/uncontrolled Accu-Chek every 6 hours with Humalog high-dose coverage as. Sliding scale coverage, glipizide added Closely monitor,Diabetic education -- Hypertension Hydralazine 10 mg IV every 6 hours as needed. We will continue the home medication --Paroxysmal A-fib rate controlled Stable. We will continue the home medication. Echocardiogram. Cardiology evaluation On beta-blockers and chronic anticoagulant Eliquis changed to Xarelto Cardiology following -- Tobacco abuse Patient is a former tobacco user. We counseled regarding quitting smoking --Obesity; BMI 35.6; Diet modification, lifestyle changes, exercise as tolerated And weight reduction when medically stable --Full CODE STATUS --DVT prophylaxis Heparin 5000 units subcu every 12 hours for DVT prophylaxis. Pepcid 20 mg p.o. twice daily for GI prophylaxis. Patient is a full code Closely monitor the patient and adjust management as needed Cardiology consult and recommendations noted and appreciated Discharge planning per case management when patient is stable 08/06/2021; cardiology initiated IV digoxin Closely monitor, discharge when medically stable and cleared by cardiology History Interval history: I have seen and evaluated the patient Patient's chart and medications reviewed Patient has mild shortness of breath significantly improved since yesterday Vital signs reviewed Hospitalist Physical - Constitutional Vitals: Temp Pulse Resp BP Pulse Ox 98.9 F 124 H 18 128/57 98 08/05/21 05:42 08/05/21 14:50 08/05/21 14:50 08/05/21 05:42 08/05/21 08:58 General appearance: Present: no acute distress, well-nourished, obese (Morbidly obese) - EENT Eyes: Present: PERRL, EOM intact - Neck Neck: Present: supple, normal ROM - Respiratory Respiratory effort: normal Respiratory: bilateral: diminished, negative: rales, rhonchi, wheezing - Cardiovascular Rhythm: regular Heart Sounds: Present: S1 & S2 - Extremities Extremities: no ischemia, No edema - Abdominal General gastrointestinal: soft, non-tender, non-distended, normal bowel sounds - Integumentary Integumentary: Present: clear, warm - Psychiatric Psychiatric: appropriate mood/affect, cooperative - Neurologic Neurologic: moves all extremities HEART Score - HEART Score Troponin: Troponin T < 0.010 ng/mL (0.00-0.029) 08/04/21 14:35 Results - Labs CBC & Chem 7: 08/06/21 12:03 08/06/21 12:03 Labs: Laboratory Last Values WBC 6.0 K/mm3 (4.5-11.0) 08/05/21 16:38 RBC 4.56 M/mm3 (3.65-5.03) 08/05/21 16:38 Hgb 10.2 gm/dl (10.1-14.3) 08/05/21 16:38 Hct 33.1 % (30.3-42.9) 08/05/21 16:38 MCV 72 fl (79-97) L 08/05/21 16:38 MCH 22 pg (28-32) L 08/05/21 16:38 MCHC 31 % (30-34) 08/05/21 16:38 RDW 14.9 % (13.2-15.2) 08/05/21 16:38 Plt Count 184 K/mm3 (140-440) 08/05/21 16:38 Lymph % (Auto) 45.5 % (13.4-35.0) H 08/05/21 05:35 [place] % (Auto) 8.2 % (0.0-7.3) H 08/05/21 05:35 Eos % (Auto) 1.3 % (0.0-4.3) 08/05/21 05:35 Baso % (Auto) 0.8 % (0.0-1.8) 08/05/21 05:35 Lymph # (Auto) 3.0 K/mm3 (1.2-5.4) 08/05/21 05:35 [place] # (Auto) 0.5 K/mm3 (0.0-0.8) 08/05/21 05:35 Eos # (Auto) 0.1 K/mm3 (0.0-0.4) 08/05/21 05:35 Baso # (Auto) 0.1 K/mm3 (0.0-0.1) 08/05/21 05:35 Seg Neutrophils % 44.2 % (40.0-70.0) 08/05/21 05:35 Seg Neutrophils # 2.9 K/mm3 (1.8-7.7) 08/05/21 05:35 PT 13.7 Sec. (12.2-14.9) 08/05/21 16:38 INR 0.95 (0.87-1.13) 08/05/21 16:38 APTT 35.3 Sec. (24.2-36.6) 08/05/21 16:38 ABG pH 7.277 pH Units (7.350-7.450) L 08/04/21 14:15 ABG pCO2 44.7 mm Hg 08/04/21 14:15 ABG pO2 178.4 mm Hg (80.0-90.0) H 08/04/21 14:15 ABG HCO3 20.4 mmol/L (20.0-26.0) 08/04/21 14:15 ABG O2 Saturation 99.0 % (95.0-99.0) 08/04/21 14:15 ABG O2 Content 15.2 (0.0-44) 08/04/21 14:15 ABG Base Excess -6.1 mmol/L (-2.0-3.0) L 08/04/21 14:15 ABG Hemoglobin 10.9 gm/dl (12.0-16.0) L 08/04/21 14:15 ABG Carboxyhemoglobin 1.6 % (0.0-5.0) 08/04/21 14:15 ABG Methemoglobin 0.5 % (0.0-1.5) 08/04/21 14:15 Oxyhemoglobin 97.0 % (95.0-99.0) 08/04/21 14:15 FiO2 60 % 08/04/21 14:15 Sodium 140 mmol/L (137-145) 08/05/21 05:35 Potassium 3.9 mmol/L (3.6-5.0) 08/05/21 05:35 Chloride 100.1 mmol/L (98-107) 08/05/21 05:35 Carbon Dioxide 22 mmol/L (22-30) 08/05/21 05:35 Anion Gap 22 mmol/L 08/05/21 05:35 BUN 14 mg/dL (7-17) 08/05/21 05:35 Creatinine 0.7 mg/dL (0.6-1.2) 08/05/21 16:38 Estimated GFR > 60 ml/min 08/05/21 16:38 BUN/Creatinine Ratio 20 % 08/05/21 05:35 Glucose 411 mg/dL (65-100) H 08/05/21 05:35 POC Glucose 368 mg/dL (70-105) H 08/05/21 05:24 Calcium 9.6 mg/dL (8.4-10.2) 08/05/21 05:35 Total Bilirubin 0.40 mg/dL (0.1-1.2) 08/04/21 14:35 AST 225 units/L (5-40) H 08/04/21 14:35 ALT 110 units/L (7-56) H 08/04/21 14:35 Alkaline Phosphatase 101 units/L (35-129) 08/04/21 14:35 Troponin T < 0.010 ng/mL (0.00-0.029) 08/04/21 14:35 NT-Pro-B Natriuret Pep 3670 pg/mL (0-900) H 08/04/21 14:35 Total Protein 6.9 g/dL (6.3-8.2) 08/04/21 14:35 Albumin 4.1 g/dL (3.9-5) 08/04/21 14:35 Albumin/Globulin Ratio 1.5 % 08/04/21 14:35 Steward/IV: Voiding Method Toilet Active Medications - Current Medications Current Medications: Generic Name Dose Route Start Last Admin Trade Name Freq PRN Reason Stop Dose Admin Acetaminophen 650 mg 08/04/21 19:37 Acetaminophen 325 Mg Tab PO Q4H PRN Pain MILD(1-3)/Fever >100.5/MAS Albuterol 2.5 mg 08/04/21 19:37 Albuterol 2.5 Mg/3 Ml Nebu IH Q3HRT PRN Shortness Of Breath Albuterol/Ipratropium 1 ampul 08/04/21 20:00 08/05/21 14:50 Ipratropium/Albuterol Sulfate 3 Ml Ampul.Neb IH 1 ampul Q6HRT PETERSON Administration Apixaban 5 mg 08/05/21 22:00 Apixaban 5 Mg Tab PO Q12HR [facility] Protocol Dextrose 50 ml 08/04/21 19:37 Dextrose 50% In Water (25gm) 50 Ml Syringe IV Q30MIN PRN Hypoglycemia Protocol Famotidine 20 mg 08/04/21 22:00 08/05/21 10:13 Famotidine 20 Mg Tab PO 20 mg BID PETERSON Administration Furosemide 40 mg 08/05/21 06:00 08/05/21 17:56 Furosemide 40 Mg/4 Ml Inj IV 40 mg BID@0600,1800 PETRESON Administration Glipizide 10 mg 08/06/21 08:00 Glipizide Xl 10 Mg Tab PO QDDIAB PETERSON Insulin Human Lispro 0 unit 08/05/21 22:00 Insulin Lispro 100 Unit/Ml SUB-Q ACHS [facility] Protocol Metoprolol Succinate 12.5 mg 08/05/21 16:00 08/05/21 17:38 Metoprolol Succinate Xl 25 Mg Tab PO 12.5 mg BID PETERSON Administration Morphine Sulfate 2 mg 08/04/21 19:37 Morphine 2 Mg/1 Ml Inj IV Q4H PRN Pain, Moderate (4-6) Morphine Sulfate 4 mg 08/04/21 19:37 Morphine 4 Mg/1 Ml Inj IV Q4H PRN Pain , Severe (7-10) Ondansetron HCl 4 mg 08/04/21 19:37 Ondansetron 4 Mg/2 Ml Inj IV Q8H PRN Nausea And Vomiting Sodium Chloride 10 ml 08/04/21 22:00 08/05/21 10:13 Sodium Chloride 0.9% 10 Ml Flush Syringe IV 10 ml BID PETERSON Administration Sodium Chloride 10 ml 08/04/21 19:37 Sodium Chloride 0.9% 10 Ml Flush Syringe IV PRN PRN LINE FLUSH
[2021-08-05] MEDS ORDERED: APIXABAN 5 MG TAB PO SCH (22:00)
[2021-08-06] MEDS: IPRATROPIUM/ALBUTEROL SULFATE 3 ML AMPUL.NEB IH SCH ×4 (02:21→21:46)
[2021-08-06] MEDS: FUROSEMIDE 40 MG/4 ML INJ IV SCH (06:04)
[2021-08-06] MEDS: INSULIN LISPRO 100 UNIT/ML SUB-Q SCH ×5 (07:09→22:00)
[2021-08-06] MEDS: FAMOTIDINE 20 MG TAB PO SCH ×2 (09:54→21:29)
[2021-08-06] MEDS: METOPROLOL SUCCINATE XL 25 MG TAB PO SCH ×2 (09:55→21:27)
--- NOTE | 2021-08-06 10:11 | Progress Note ---
Assessment and Plan The patient is a 76-year-old female with a past medical history of history of paroxysmal atrial fibrillation, HFrEF, hypertension, JOANNE who presented to the ED with complaint of shortness of breath. Acute on chronic HFrEF Acute respiratory failure Paroxysmal A. fib COPD Hypertension Diabetes JOANNE Echocardiogram of 07/04/21 - Left ventricular ejection fraction is 40-45%. Entire inferior wall and basal and mid inferolateral wall are abnormal. Mild aortic valve insufficiency. There is moderately increased filling pressure consistent with grade 2 diastolic dysfunction. Mildly increased left ventricular wall thickness. Mild mitral valve regurgitation. [facility] (01/19/2020) - Outside Facility - [facility]- Moderately severe diffuse coronary calcification 100% proximal RCA stenosis There are R to R collaterals to the PDA. There are left to right collaterals to the PDA 50-60% (non critical) mid LAD stenosis Moderate luminal disease in the left circumflex artery LVEF 50-55% with inferior wall severe hypokinesis/akinesis. Recommend maximal medical therapy Plan: Continue metoprolol XL 12.5 mg p.o. twice daily Patient appears euvolemic on exam. Will stop Lasix IV and convert to outpatient Lasix 20 mg p.o. daily Agree with stopping Eliquis and converting to outpatient Xarelto for anticoagulation Patient on rosuvastatin 10 mg p.o. nightly as an outpatient however rosuvastatin not on formulary will convert atorvastatin 20 mg p.o. nightly. We will resume outpatient aspirin Will initiate IV digoxin for further rate control Patient reports recent stress test performed by her primary container shop welder during outpatient with results pending. Will defer ischemic eval due to recent outpatient stress test No MAMIE or ARB due to low BP. Will defer to outpatient container shop welder for initiation Patient in conjunction with Dr. Rodriguez who agrees with this plan of care - Patient Problems (1) Diabetes Current Visit: Yes Status: Acute (2) Hypertension Current Visit: Yes Status: Chronic Qualifiers: Hypertension type: primary hypertension Qualified Code(s): I10 - Essential (primary) hypertension (3) Tobacco abuse Current Visit: Yes Status: Acute (4) Acute HFrEF (heart failure with reduced ejection fraction) Current Visit: Yes Status: Acute (5) Paroxysmal atrial fibrillation with RVR Current Visit: Yes Status: Acute (6) COPD (chronic obstructive pulmonary disease) Current Visit: Yes Status: Chronic (7) OJANNE (obstructive sleep apnea) Current Visit: Yes Status: Chronic Subjective Date of service: 08/06/21 Principal diagnosis: Acute on chronic HFrEF Interval history: Patient resting in bed in no acute distress. A. fib 90s on monitor Objective Vital Signs Temp Pulse Pulse Pulse Resp Resp Resp 08/06/21 09:38 08/06/21 09:36 111 H 119 H 18 18 08/06/21 04:35 98.9 F 100 H 20 08/05/21 23:03 129 H 08/05/21 22:00 96 H 08/05/21 21:14 08/05/21 20:10 98.4 F 96 H 18 08/05/21 20:00 112 H 16 08/05/21 14:50 124 H 18 08/05/21 13:00 78 BP BP Pulse Ox 08/06/21 09:38 97 08/06/21 09:36 08/06/21 04:35 94/53 98 08/05/21 23:03 08/05/21 22:00 117/74 96 08/05/21 21:14 96 08/05/21 20:10 117/74 97 08/05/21 20:00 08/05/21 14:50 08/05/21 13:00 - Physical Examination General: No Apparent Distress HEENT: Positive: EOMI, Normocephaly, Mucus Membranes Moist Neck: Positive: neck supple, trachea midline, JVD/HJR Cardiac: Positive: irregularly irregular Lungs: Positive: Normal Breath Sounds Neuro: Positive: Grossly Intact Abdomen: Positive: Soft, Active Bowel Sounds. Negative: Tender Skin: Negative: Rash, Suspicious Lesions, Ulceration Musculoskeletal: Normal Range of Motion Extremities: Present: normal. Absent: edema - Labs and Meds Coagulation 08/05/21 Range/Units 16:38 PT 13.7 (12.2-14.9) Sec. INR 0.95 (0.87-1.13) APTT 35.3 (24.2-36.6) Sec. CBC 08/05/21 Range/Units 16:38 WBC 6.0 (4.5-11.0) K/mm3 RBC 4.56 (3.65-5.03) M/mm3 Hgb 10.2 (10.1-14.3) gm/dl Hct 33.1 (30.3-42.9) % Plt Count 184 (140-440) K/mm3 Comprehensive Metabolic Panel 08/05/21 Range/Units 16:38 Creatinine 0.7 (0.6-1.2) mg/dL - Imaging and Cardiology EKG: image reviewed - Telemetry EKG Rhythm: Atrial Fibrillation - EKG Sinus rhythms and dysrhythmias: sinus rhythm Supraventricular dysrhythmia: atrial fibrillation Repolarization changes or abnormalities: ST or T wave suggestive of ischemia
[2021-08-06 12:33] LABS: Hemoglobin 10.8 gm/dl (10.1-14.3); Mean Corpuscular HGB Conc 31 % (30-34); Mean Corpuscular Volume 73 fl (79-97); Platelet Count 205 K/mm3 (140-440); Red Blood Count 4.81 M/mm3 (3.65-5.03); Red Cell Distribution Width 15.3 % (13.2-15.2)
[2021-08-06 12:36] LABS: INR 1.03 (0.87-1.13)
[2021-08-06 12:37] LABS: Partial Thromboplastin Time 34.7 Sec. (24.2-36.6)
[2021-08-06] MEDS: FUROSEMIDE 20 MG TAB PO SCH (13:55)
[2021-08-06] MEDS ORDERED: RIVAROXABAN 20 MG TAB PO SCH (17:00)
[2021-08-06] MEDS: DIGOXIN 0.5 MG/2 ML INJ IV SCH ×2 (18:56→21:26)
[2021-08-07] MEDS: DIGOXIN 0.5 MG/2 ML INJ IV SCH ×2 (01:02→06:32)
[2021-08-07] MEDS: IPRATROPIUM/ALBUTEROL SULFATE 3 ML AMPUL.NEB IH SCH ×3 (02:27→14:10)
[2021-08-07 05:51] LABS: Hematocrit 33.6 % (30.3-42.9); Hemoglobin 10.6 gm/dl (10.1-14.3); Mean Corpuscular HGB Conc 32 % (30-34); Mean Corpuscular Volume 72 fl (79-97); Platelet Count 209 K/mm3 (140-440); Red Blood Count 4.69 M/mm3 (3.65-5.03); Red Cell Distribution Width 15.2 % (13.2-15.2)
[2021-08-07 06:14] LABS: Blood Urea Nitrogen 20 mg/dL (7-17); Calcium 9.3 mg/dL (8.4-10.2); Hemolysis Index 1
[2021-08-07 06:23] LABS: BUN/Creatinine Ratio 29
[2021-08-07] MEDS: INSULIN LISPRO 100 UNIT/ML SUB-Q SCH ×2 (08:15→12:26)
[2021-08-07] MEDS ORDERED: ASPIRIN 81 MG TAB CHEW PO SCH (10:00)
--- NOTE | 2021-08-07 10:11 | Progress Note ---
Assessment and Plan The patient is a 76-year-old female with a past medical history of history of paroxysmal atrial fibrillation, HFrEF, hypertension, JOANNE who presented to the ED with complaint of shortness of breath. Acute on chronic HFrEF Acute respiratory failure Paroxysmal A. fib COPD Hypertension Diabetes JOANNE Echocardiogram of 07/04/21 - Left ventricular ejection fraction is 40-45%. Entire inferior wall and basal and mid inferolateral wall are abnormal. Mild aortic valve insufficiency. There is moderately increased filling pressure consistent with grade 2 diastolic dysfunction. Mildly increased left ventricular wall thickness. Mild mitral valve regurgitation. [facility] (01/19/2020) - Outside Facility - [facility]- Moderately severe diffuse coronary calcification 100% proximal RCA stenosis There are R to R collaterals to the PDA. There are left to right collaterals to the PDA 50-60% (non critical) mid LAD stenosis Moderate luminal disease in the left circumflex artery LVEF 50-55% with inferior wall severe hypokinesis/akinesis. Recommend maximal medical therapy Plan: Continue metoprolol XL 12.5 mg p.o. twice daily Continue Lasix 20 mg p.o. daily, asa, and statin therapy Continue Xarelto for anticoagulation Telemetry reviewed patient A. fib 70s on monitor. Will initiate digoxin 0.125 mg p.o. daily Patient reports recent stress test performed by her primary local company refrigerated truck driver during outpatient with results pending. Will defer ischemic eval due to recent outpatient stress test No MAMIE or ARB due to low BP. Will defer to outpatient local company refrigerated truck driver for initiation Plan of care discussed with patient who verbalized understanding and acknowledgm ent Cardiac status otherwise stable for discharge Patient follow with her primary local company refrigerated truck driver in 1 to 2 weeks after discharge Patient in conjunction with Dr. Rodriguez who agrees with this plan of care - Patient Problems (1) Diabetes Current Visit: Yes Status: Acute (2) Hypertension Current Visit: Yes Status: Chronic Qualifiers: Hypertension type: primary hypertension Qualified Code(s): I10 - Essential (primary) hypertension (3) Tobacco abuse Current Visit: Yes Status: Acute (4) Acute HFrEF (heart failure with reduced ejection fraction) Current Visit: Yes Status: Acute (5) Paroxysmal atrial fibrillation with RVR Current Visit: Yes Status: Acute (6) COPD (chronic obstructive pulmonary disease) Current Visit: Yes Status: Chronic (7) JOANNE (obstructive sleep apnea) Current Visit: Yes Status: Chronic Subjective Date of service: 08/07/21 Principal diagnosis: Acute on chronic HFrEF Interval history: Patient resting in bed in no acute distress. A. fib 70s on monitor Objective Vital Signs Temp Pulse Pulse Pulse Resp Resp Resp 08/07/21 08:35 97.9 F 77 18 08/07/21 08:00 71 18 08/07/21 06:32 117 H 08/07/21 03:32 98.1 F 117 H 18 08/07/21 03:29 98.5 F 73 16 08/07/21 01:02 94 H 08/06/21 23:22 97.7 F 89 16 08/06/21 22:00 110 H 08/06/21 21:48 08/06/21 21:27 94 H 08/06/21 20:00 106 H 106 H 18 18 08/06/21 19:52 97.2 F L 94 H 16 08/06/21 13:59 109 H 111 H 18 18 BP Pulse Ox 08/07/21 08:35 107/80 96 08/07/21 08:00 08/07/21 06:32 119/63 08/07/21 03:32 119/63 93 08/07/21 03:29 94/52 96 08/07/21 01:02 116/79 08/06/21 23:22 112/70 96 08/06/21 22:00 96 08/06/21 21:48 97 08/06/21 21:27 116/79 08/06/21 20:00 08/06/21 19:52 116/79 96 08/06/21 13:59 - Physical Examination General: No Apparent Distress HEENT: Positive: EOMI, Normocephaly, Mucus Membranes Moist Neck: Positive: neck supple, trachea midline, JVD/HJR Cardiac: Positive: irregularly irregular Lungs: Positive: Normal Breath Sounds Neuro: Positive: Grossly Intact Abdomen: Positive: Soft, Active Bowel Sounds. Negative: Tender Skin: Negative: Rash, Suspicious Lesions, Ulceration Musculoskeletal: Normal Range of Motion Extremities: Present: normal. Absent: edema - Labs and Meds Coagulation 08/06/21 Range/Units 12:03 PT 14.7 (12.2-14.9) Sec. INR 1.03 (0.87-1.13) APTT 34.7 (24.2-36.6) Sec. CBC 08/06/21 08/07/21 Range/Units 12:03 05:18 WBC 6.1 7.2 (4.5-11.0) K/mm3 RBC 4.81 4.69 (3.65-5.03) M/mm3 Hgb 10.8 10.6 (10.1-14.3) gm/dl Hct 35.0 33.6 (30.3-42.9) % Plt Count 205 209 (140-440) K/mm3 Comprehensive Metabolic Panel 08/06/21 08/07/21 Range/Units 12:03 05:18 Sodium 139 (137-145) mmol/L Potassium 3.7 (3.6-5.0) mmol/L Chloride 101.1 (98-107) mmol/L Carbon Dioxide 26 (22-30) mmol/L BUN 20 H (7-17) mg/dL Creatinine 0.6 0.7 (0.6-1.2) mg/dL Glucose 202 H (65-100) mg/dL Calcium 9.3 (8.4-10.2) mg/dL - Imaging and Cardiology EKG: image reviewed - Telemetry EKG Rhythm: Atrial Fibrillation - EKG Sinus rhythms and dysrhythmias: sinus rhythm Supraventricular dysrhythmia: atrial fibrillation Repolarization changes or abnormalities: ST or T wave suggestive of ischemia
[2021-08-07] MEDS: FUROSEMIDE 20 MG TAB PO SCH (11:02)
[2021-08-07] MEDS: FAMOTIDINE 20 MG TAB PO SCH (11:02)
[2021-08-07 11:03] VITALS: BP 112/80
[2021-08-07] MEDS: METOPROLOL SUCCINATE XL 25 MG TAB PO SCH (11:03)
--- NOTE | 2021-08-07 12:19 | Discharge Summary ---
Providers - Providers Date of Admission: 08/04/21 19:37 Date of discharge: 08/07/21 Attending physician: AJ ANAYA 08/04/21 19:37 Consult to Dietitian/Nutrition [CONS] Routine Physician Instructions: Reason For Exam: Reason for Consult: Diet education Consult to Physician [CONS] Routine Comment: Consulting Provider: ADDIE DORANTES Physician Instructions: Reason For Exam: chf Primary care physician: LYNSEY EDGAR Hospitalization Condition: Stable Hospital course: The patient is a 76-year-old female with a past medical history of history of paroxysmal atrial fibrillation, HFrEF, hypertension, JOANNE who presented to the ED with complaint of shortness of breath. Echocardiogram of 07/04/21 - Left ventricular ejection fraction is 40-45%. Entire inferior wall and basal and mid inferolateral wall are abnormal. Mild aortic valve insufficiency. There is moderately increased filling pressure consistent with grade 2 diastolic dysfunction. Mildly increased left ventricular wall thickness. Mild mitral valve regurgitation. [facility] (01/19/2020) - Outside Facility - [facility]- Moderately severe diffuse coronary calcification 100% proximal RCA stenosis There are R to R collaterals to the PDA. There are left to right collaterals to the PDA 50-60% (non critical) mid LAD stenosis Moderate luminal disease in the left circumflex artery LVEF 50-55% with inferior wall severe hypokinesis/akinesis. Recommend maximal medical therapy Patient was admitted to telemetry floor with scheduled iv diuretics. Monitored with serial CE, EKG. Cardiology consulted, 2d echo obtained. Provided cardiac diet, daily weights, monitored in's and O's. Patients symptom improved with medical management. Patient was then discharged home in stable condition with outpt f/u. On discharge patient will Continue metoprolol XL 12.5 mg p.o. twice daily, Lasix 20 mg p.o. daily, asa, and statin therapy and Xarelto for anticoagulation. No MAMIE or ARB due to low BP. Plan of care discussed with patient who verbalized understanding and acknowledgment. Disposition: 01 HOME / SELF CARE / HOMELESS Final Discharge Diagnosis (Prints w/discharge instructions): Acute on chronic HFrEF. Acute respiratory failure. Paroxysmal A. fib. COPD. Hypertension. Diabetes. JOANNE Time spent for discharge: 34 minutes Core Measure Documentation - Palliative Care Palliative Care/ Comfort Measures: Not Applicable - Core Measures Any of the following diagnoses?: heart failure - Heart Failure Discharge Requirements MAMIE/ARB for LVSD if EF <40%: Not Applicable Reason for no MAMIE/ARB: Hypotension Beta santi at discharge: Yes Exam - Constitutional Vitals: Temp Pulse Resp BP Pulse Ox 97.9 F 76 18 112/80 96 08/07/21 08:35 08/07/21 11:03 08/07/21 08:35 08/07/21 11:03 08/07/21 08:35 Plan Activity: advance as tolerated Weight Bearing Status: Weight Bear as Tolerated Diet: low fat, low salt Special Instructions: restrict fluid intake to (1.2L daily ) Additional Instructions: outpt sleep study for CPAP Follow up with: LYNSEY EDGAR MD [Primary Care Provider] - 3-5 Days KAMILLA ESTRADA MD [Staff Physician] - 7 Days Prescriptions: Digoxin [Lanoxin] 0.125 mg PO DAILY #30 tablet Furosemide [Lasix] 20 mg PO QDAY #30 tablet
[2021-08-07] MEDS ORDERED: DIGOXIN 0.125 MG TAB PO SCH (17:00)
== END 2021-08-07 15:09 | disposition home or self-care (01) | DRG 291 ==
LOC: ED 13:53 → 4A 19:37
PROVIDERS: ADMIT Hospitalist; ATTEND Internal Medicine
PROC: 4A033R1 Measurement of Arterial Saturation, Peripheral, Percutaneous Approach (ICD-10-PCS; principal; 2021-08-04)
PROC: 5A09357 Assistance with Respiratory Ventilation, Less than 24 Consecutive Hours, Continuous Positive Airway Pressure (ICD-10-PCS; 2021-08-04)
DX: I11.0 Hypertensive heart disease with heart failure (principal); I50.23 Acute on chronic systolic (congestive) heart failure; J96.01 Acute respiratory failure with hypoxia; E11.65 Type 2 diabetes mellitus with hyperglycemia; I48.0 Paroxysmal atrial fibrillation; G47.33 Obstructive sleep apnea (adult) (pediatric); M19.90 Unspecified osteoarthritis, unspecified site; E66.9 Obesity, unspecified; F17.200 Nicotine dependence, unspecified, uncomplicated; Z68.35 Body mass index [BMI] 35.0-35.9, adult; Z79.01 Long term (current) use of anticoagulants; Z71.6 Tobacco abuse counseling; Z90.710 Acquired absence of both cervix and uterus; Z85.3 Personal history of malignant neoplasm of breast; Z86.73 Personal history of transient ischemic attack (TIA), and cerebral infarction without residual deficits; Z82.49 Family history of ischemic heart disease and other diseases of the circulatory system
CPT/HCPCS: 36415; 71045; 80048; 80053; 82565; 82803; 82962; 83880; 84443; 84484; 85025; 85027; 85610; 85730; 93005; 94640; 94644; 99292; G0378; Q9967; J1160; J1644; J1815; J1940